=== PATIENT | male | born 1955 | race Caucasian/White ===

== ENCOUNTER 2023-11-01 10:38 | Emergency (ER) | payer OTHER ==
[~2023-11-01] VITALS: Ht 170.2 cm; Wt 82.0 kg
[2023-11-01 10:59] VITALS: O2SAT 99
[2023-11-01 11:23] LABS: BASOPHILS % 0.4 % (0.0-2.0); EOSINOPHILS % 0.1 % (0.0-5.0); HEMOGLOBIN. 14.8 g/dL (14.0-18.0); LYMPHOCYTES % 17.2 % (20.0-50.0); MEAN CORPUSCULAR HEMOGLOBIN 31.5 pg (28.0-32.0); MEAN CORPUSCULAR HGB CONC 34.5 g/dL (31.0-37.0); MEAN CORPUSCULAR VOLUME 91.3 fL (80.0-94.0); MEAN PLATELET VOLUME 8.8 fl (7.4-10.4); NEUTROPHILS % 78.3 % (40.0-76.0); PLATELET 243 x1000/uL (130-400); RED BLOOD CELL COUNT 4.71 mill/uL (4.7-6.1); WHITE BLOOD COUNT 9.5 x1000/uL (4.5-11.0)
[2023-11-01 11:42] LABS: CHLORIDE 106 mEq/L (98-107); POTASSIUM 3.7 mEq/L (3.5-5.1); SODIUM 139 mEq/L (136-145)
[2023-11-01 11:43] LABS: CARBON DIOXIDE 25 mEq/L (21-32)
[2023-11-01 11:44] LABS: CALCIUM 9.5 mg/dL (8.7-10.4)
[2023-11-01 11:48] LABS: CREATININE 0.9 mg/dL (0.6-1.3); GLUCOSE 123 mg/dL (70-105)
[2023-11-01 11:49] LABS: UREA NITROGEN BLOOD 11 mg/dL (9-23)
[2023-11-01] MEDS: FAMOTIDINE 20MG TABLET PO ONE (13:15)
[2023-11-01] MEDS: SUCRALFATE 1G TABLET PO SCH (14:07)
[2023-11-01 14:14] LABS: CHLORIDE 105 mEq/L (98-107); SODIUM 140 mEq/L (136-145)
[2023-11-01 14:15] LABS: CALCIUM 9.5 mg/dL (8.7-10.4); CARBON DIOXIDE 26 mEq/L (21-32)
[2023-11-01 14:20] LABS: CREATININE 0.9 mg/dL (0.6-1.3); GLUCOSE 120 mg/dL (70-105); UREA NITROGEN BLOOD 14 mg/dL (9-23)
[2023-11-01 14:22] LABS: ALANINE AMINOTRANSFERASE 21 IU/L (10-49); ALBUMIN 4.7 g/dL (3.2-4.8); ASPARTATE AMINOTRANSFERASE 24 IU/L (<34); BILIRUBIN TOTAL 0.5 mg/dL (0.1-1.0)
[2023-11-01 14:23] LABS: PROTEIN TOTAL 7.8 g/dL (6.0-8.3)
[2023-11-01 15:00] VITALS: BP 141/86; PULSE 75; RESP 17; TEMP 98
== END 2023-11-01 16:46 | disposition home or self-care (01) ==
LOC: ER 10:38
DX: R10.816 Epigastric abdominal tenderness (principal); E78.00 Pure hypercholesterolemia, unspecified; I10 Essential (primary) hypertension
CPT/HCPCS: 36415; 74176; 80048; 80053; 85025; 99284

== ENCOUNTER 2024-05-02 14:14 | Emergency (ER) | payer MEDICARE, OTHER ==
[~2024-05-02] VITALS: Ht 170.2 cm; Wt 81.6 kg
[2024-05-02 14:15] VITALS: O2SAT 96
[2024-05-02 15:03] LABS: BASOPHILS % 0.6 % (0.0-2.0); EOSINOPHILS % 1.1 % (0.0-5.0); HEMATOCRIT. 39.9 % (42.0-52.0); LYMPHOCYTES % 39.7 % (20.0-50.0); MEAN CORPUSCULAR HEMOGLOBIN 32.1 pg (28.0-32.0); MEAN CORPUSCULAR HGB CONC 35.1 g/dL (31.0-37.0); MEAN CORPUSCULAR VOLUME 91.5 fL (80.0-94.0); MEAN PLATELET VOLUME 8.7 fl (7.4-10.4); MONOCYTES % 6.2 % (2.0-8.0); NEUTROPHILS % 52.4 % (40.0-76.0); PLATELET 216 x1000/uL (130-400); RED BLOOD CELL COUNT 4.37 mill/uL (4.7-6.1); RED CELL DISTRIBUTION WIDTH 13.8 % (11.6-14.6); WHITE BLOOD COUNT 6.6 x1000/uL (4.5-11.0)
[2024-05-02 15:31] LABS: TROPONIN I HIGH SENSITIVITY 4 ng/L (3.0-53)
[2024-05-02] MEDS: MAGNESIUM/ALUMINUM HYDROXIDE/SIMETHICONE 30ML UDC PO ONE (15:42)
[2024-05-02 16:17] LABS: CHLORIDE 107 mEq/L (98-107); POTASSIUM 3.9 mEq/L (3.5-5.1); SODIUM 141 mEq/L (136-145)
[2024-05-02 16:18] LABS: CALCIUM 9.8 mg/dL (8.7-10.4); CARBON DIOXIDE 28 mEq/L (21-32)
[2024-05-02 16:23] LABS: CREATININE 0.8 mg/dL (0.6-1.3); GLUCOSE 100 mg/dL (70-105); UREA NITROGEN BLOOD 17 mg/dL (9-23)
[2024-05-02 16:25] LABS: ALANINE AMINOTRANSFERASE 16 IU/L (10-49); ALBUMIN 4.5 g/dL (3.2-4.8); ASPARTATE AMINOTRANSFERASE 21 IU/L (<34); BILIRUBIN TOTAL 0.4 mg/dL (0.1-1.0); PROTEIN TOTAL 7.5 g/dL (6.0-8.3)
[2024-05-02 17:18] VITALS: BP 155/78; PULSE 58; RESP 19; TEMP 36.78072; O2SAT 100
== END 2024-05-02 17:46 | disposition home or self-care (01) ==
LOC: ER 14:14
DX: R06.81 Apnea, not elsewhere classified (principal); E78.00 Pure hypercholesterolemia, unspecified; I10 Essential (primary) hypertension
CPT/HCPCS: 36415; 71045; 80053; 83880; 84484; 85025; 93005; 99285